=== PATIENT | male | born 1975 | race African-American/Black ===

== ENCOUNTER 2019-05-02 03:07 | Emergency (ER) | payer OTHER ==
[~2019-05-02] VITALS: Ht 182.9 cm; Wt 99.5 kg
[~2019-05-02 03:07] MED LIST: ACET500C5 PO; CEPH-443 PO; SULF1TAB31 PO
[2019-05-02 03:09] VITALS: BP 145/90; PULSE 98; RESP 16; Ht 182.9 cm; Wt 99.5 kg
[2019-05-02] MEDS ORDERED: CEPHALEXIN 500 MG CAP PO ONE (03:30)
[2019-05-02] MEDS ORDERED: TRIMETHOPRIM/SULFAMETHOX (DS) TAB PO ONE (03:30)
--- NOTE | 2019-05-02 03:44 | ERD ---
ER Documentation Chief Complaint Chief Complaint ABSCESS ON BUTTOCK X2DAYS; HX OF DM HPI Patient is a 44-year-old male past medical history of DM type II, who presents the ER for concerns of an abscess to his buttocks. Patient states for the last 2 days he has noted drainage from his buttocks. Patient [place] Patient denies any IV drug use. Patient denies any fevers or chills. Patient states he takes metformin for his diabetes daily. Patient stated his tetanus vaccination is up-to-date he got it 2 years ago. ROS All systems reviewed and are negative except as per history of present illness. Medications Home Meds Active Scripts Acetaminophen* (Tylophen*) 500 Mg Capsule, 1 CAP PO Q6H PRN for PAIN AND OR ELEVATED TEMP, #20 CAP Prov:TA GORMAN PA-C 05/02/19 Sulfamethoxazole/Trimethoprim* (Bactrim Ds* Tablet) 1 Each Tablet, 1 TAB PO BID, #14 TAB Prov:TA GORMAN PA-C 05/02/19 Cephalexin* (Keflex*) 500 Mg Capsule, 500 MG PO TID for 7 Days, CAP Prov:TA GORMAN PA-C 05/02/19 Allergies Allergies: Coded Allergies: No Known Allergy (Unverified , 05/02/19) PMhx/Soc Medical and Surgical Hx: pt denies Surgical Hx Hx Miscellaneous Medical Probl: Yes (DM) Hx Alcohol Use: No Hx Substance Use: No Hx Tobacco Use: Yes Smoking Status: Current every day smoker FmHx Family History: diabetes Physical Exam Vitals Vital Signs Date Temp Pulse Resp B/P (MAP) Pulse Ox O2 O2 Flow FiO2 Time Delivery Rate 05/02/19 98.0 98 16 145/90 98 03:09 (108) Physical Exam GENERAL: Well-developed, well-nourished male. Appears in no acute distress. HEAD: Normocephalic, atraumatic. EYES: Pupils are equally reactive bilaterally. EOMs grossly intact. No conjunctival erythema. EXTREMITIES: Equal pulses bilaterally. No peripheral clubbing, cyanosis or edema. No unilateral leg swelling. NEUROLOGIC: Alert and oriented. Moving all four extremities without any difficulty. Normal speech. Steady gait. BUTTOCKS: RAY Casiano present as well as poultry service technicianetienne Carroll during this part of the exam. 4 cm x 4 cm circular indurated area noted in the inner left buttocks. Purulent drainage expressed from site with direct pressure. Results 24 hrs Current Medications Medications Dose Sig/Maximiliano Start Time Status Last (Trade) Ordered Route PRN Stop Time Admin Dose Reason Admin 1 tab ONCE ONCE 05/02/19 Trimethoprim/ PO 03:30 05/02/19 03:31 Sulfamethoxaz ole (Bactrim (Ds)) Cephalexin 500 mg ONCE ONCE 05/02/19 (Keflex) PO 03:30 05/02/19 03:31 Procedures/MDM MEDICAL DECISION MAKING: Patient is a 44-year-old male history of DM type II, presents the ER for concerns of a left buttocks abscess x2 days. Patient denies any fevers or chills.. Vital signs were reviewed. Patient is afebrile. Patient was not hypoxic. On exam, patient is noted to have left buttocks abscess which is already draining. Purulent drainage is noted from the affected site. film laboratory technician assisted with cleaning the affected area. I offered the patient incision and drainage of abscess site today however he declined. Patient states he only wants antibiotics. Patient was given first dose of Keflex and Bactrim here. Patient was advised to return in 2 days for recheck or return sooner for any new or worsening symptoms. Patient advised to perform sitz bath at home. Low suspicion for sepsis, deep space infection, DKA. Patient was advised on the importance of DM medication compliance. Patient was nontoxic, [id number] prior to discharge. PRESCRIPTION: Tylenol, Bactrim, Keflex DISCHARGE: At this time, patient is stable for discharge and outpatient management. I have instructed the patient to follow-up with his/her primary care physician in 1-2 days. I have discussed with the patient the possibility of needing to see a specialist for further workup and imaging studies if symptoms persist. I have instructed the patient to promptly return to the ER for any new or worsening symptoms including increased pain, fever, nausea, vomiting, weakness or LOC. The patient and/or family expressed understanding of and agreement with this plan. All questions were answered. Home care instructions were provided. Patients blood pressure was elevated (>120/80) but appears stable without evidence of hypertensive emergency, hypertensive urgency or end-organ failure. I had discussion with the patient about the risks of hypertension. I have advised the patient to follow up with his/her primary care physician for outpatient monitoring and treatment for hypertension in 2-3 days. I have instructed the patient to return to the ER for any new or worsening symptoms including chest pain, shortness of breath, headache, blurred vision, confusion, nausea, vomiting or LOC. Disclaimer: Inadvertent spelling and grammatical errors are likely due to EHR/dictation software use and do not reflect on the overall quality of patient care. Also, please note that the electronic time recorded on this note does not necessarily reflect the actual time of the patient encounter. Departure Diagnosis: Primary Impression: Abscess Condition: Fair Patient Instructions: Abscess Drainage Referrals: PENDING SALE TO [facility] YOU HAVE RECEIVED A MEDICAL SCREENING EXAM AND THE RESULTS INDICATE THAT YOU DO NOT HAVE A CONDITION THAT REQUIRES URGENT TREATMENT IN THE EMERGENCY DEPARTMENT. FURTHER EVALUATION AND TREATMENT OF YOUR CONDITION CAN WAIT UNTIL YOU ARE SEEN IN YOUR DOCTORS OFFICE WITHIN THE NEXT 1-2 DAYS. IT IS YOUR RESPONSIBILITY TO MAKE AN APPOINTMENT FOR FOLOW-UP CARE. IF YOU HAVE A PRIMARY DOCTOR --you should call your primary doctor and schedule an appointment IF YOU DO NOT HAVE A PRIMARY DOCTOR YOU CAN CALL OUR PHYSICIAN REFERRAL HOTLINE AT IF YOU CAN NOT AFFORD TO SEE A PHYSICIAN YOU CAN CHOSE FROM THE FOLLOWING [facility] [address] [facility]. [facility] [address] [facility]. [facility] [address] [facility] [facility] [address] [facility] [facility] [address] [facility]. [facility]. [address] [facility]. [facility] YOU HAVE RECEIVED A MEDICAL SCREENING EXAM AND THE RESULTS INDICATE THAT YOU DO NOT HAVE A CONDITION THAT REQUIRES URGENT TREATMENT IN THE EMERGENCY DEPARTMENT. FURTHER EVALUATION AND TREATMENT OF YOUR CONDITION CAN WAIT UNTIL YOU ARE SEEN IN YOUR DOCTORS OFFICE WITHIN THE NEXT 1-2 DAYS. IT IS YOUR RESPONSIBILITY TO MAKE AN APPOINTMENT FOR FOLOW-UP CARE. IF YOU HAVE A PRIMARY DOCTOR --you should call your primary doctor and schedule and appointment IF YOU DO NOT HAVE A PRIMARY DOCTOR YOU CAN CALL OUR PHYSICIAN REFERRAL HOTLINE AT . IF YOU CAN NOT AFFORD TO SEE A PHYSICIAN YOU CAN CHOSE FROM THE FOLLOWING [facility] INSTITUTIONS: [facility] [address] [place] [address] [facility] [address] [place] [address] [facility] [address] [place] [address] Additional Instructions: Sitz baths/ warm compresses advised as discussed. Wound recheck advised in 2 days. Return to the ER sooner for any new or worsening symptoms including but not limited to pain, fevers, chills or worsening abscess. Take all your diabetes medications as prescribed. Call your primary care doctor TOMORROW for an appointment during the next 1-2 days.See the doctor sooner or return here if your condition worsens before your appointment time. TA GORMAN PA-C May 02, 2019 03:43
== END 2019-05-02 03:53 | disposition home or self-care (01) ==
LOC: FTE 03:07
DX: L02.31 Cutaneous abscess of buttock (principal); E11.9 Type 2 diabetes mellitus without complications; F17.210 Nicotine dependence, cigarettes, uncomplicated
CPT/HCPCS: Z7502; Z7610; 99283